=== PATIENT | male | born 1980 | race American Indian/Alaskan Native ===

== ENCOUNTER 2019-03-04 07:44 | Outpatient (CLI) | payer BC ==
--- NOTE | 2019-03-04 08:40 | MRI ---
Cervical spine MRI without contrast: 03/04/2019 COMPARISON: 05/12/2018 HISTORY: Left shoulder pain, arm pain, numbness, cervical radiculopathy TECHNIQUE: Multiplanar multisequence MR imaging of the cervical spine obtained without contrast FINDINGS: Sagittal STIR imaging demonstrates no focal area of osseous marrow edema. No prevertebral soft tissue swelling. No anterolisthesis or retrolisthesis. C2-3: No central canal or neural foraminal stenosis C3-4: No central canal or neural foraminal stenosis C4-5: Minimal disc bulge, stable. No associated central canal or neural foraminal stenosis. C5-6: No central canal or neural foraminal stenosis. C6-7: There is disc space narrowing, disc desiccation, and mild disc bulge with partial effacement of the ventral thecal sac and no significant central canal or neural foraminal stenosis, unchanged when compared to the prior examination. C7-T1: No central canal or neural foraminal stenosis. No abnormal signal intensity identified within the cervical cord. IMPRESSION: Mild degenerative changes. No significant central canal or neural foraminal stenosis appr eciated within the cervical spine.
== END 2019-03-04 07:45 | disposition home or self-care (01) ==
LOC: TBSIIMAG 07:44
PROVIDERS: ATTEND Neurological Surgery
DX: M47.22 Other spondylosis with radiculopathy, cervical region (principal)
CPT/HCPCS: 72141